=== PATIENT | male | born 1930 ===

== ENCOUNTER → 2018-05-22 13:07 | Outpatient (CLI) | payer OTHER | END | disposition home or self-care (01) | LOC: LAB 13:07 | DX: R97.21 Rising PSA following treatment for malignant neoplasm of prostate (principal); N39.0 Urinary tract infection, site not specified ==

== ENCOUNTER 2018-06-17 10:02 | Outpatient (CLI) | payer OTHER | END 2018-06-17 15:55 | disposition home or self-care (01) | LOC: TOM 10:02 | DX: N39.0 Urinary tract infection, site not specified (principal) ==